=== PATIENT | female | born 1985 | race Caucasian/White ===

== ENCOUNTER 2024-07-01 10:55 | Outpatient (CLI) | payer OTHER, SELFPAY ==
--- NOTE | ~2024-07-01 | CT_ITS ---
EXAMINATION: CT sinus wo con DATE: 07/01/2024 11:24 INDICATION: Chronic sinusitis TECHNIQUE: Computed tomography (CT) of the paranasal sinuses was performed without intravenous contra st. The dose-length product was 259.66 mGy-cm. Automated exposure control and iterative reconstructio n technique were employed. COMPARISON: No prior studies for comparison. FINDINGS: There is minimal mucosal thickening of the right maxillary sinus. Ostiomeatal units are pat ent. No significant nasal septal deviation. Mastoids are pneumatized. No mucoperiosteal reaction. IMPRESSION: 1. Scant mucosal thickening right maxillary sinus. Reviewed, dictated and finalized at location B. [employer]
== END 2024-07-01 10:56 | disposition home or self-care (01) ==
LOC: MICIMG 10:56
PROVIDERS: PCP Nurse Practitioner Family; Visit Provider Nurse Practitioner Family
DX: J32.9 Chronic sinusitis, unspecified (principal)
CPT/HCPCS: 70486